=== PATIENT | female | born 1930 | race Two or more races ===

== ENCOUNTER 2018-02-06 15:29 | Observation (INO) | payer MEDICARE ==
[2018-02-06] MEDS ORDERED: SODIUM CHLORIDE 1,000 ML IV STA (16:14)
[2018-02-06] MEDS ORDERED: FAMOTIDINE 20 MG/50 ML IVPB 20 MG/50 ML MG IVPB ONE ×2 (16:15→17:02)
[2018-02-06 16:42] LABS: BASO % 0.3 % (0-2.0); EOS % 0.1 % (0-4.5); HEMATOCRIT 40.2 % (32.4-45.2); HEMOGLOBIN 13.8 GM/dL (10.7-15.3); MCH 34.1 pg (25.7-33.7); MCHC 34.3 g/dl (32.0-36.0); MEAN CELL VOLUME 99.4 fl (80-96); MEAN PLT VOLUME 8.1 fl (7.5-11.1); MONO % 8.8 % (3.8-10.2); NEUT % 71.8 % (42.8-82.8); PLATELET COUNT 185 K/MM3 (134-434); RBC 4.04 M/mm3 (3.60-5.2); RDW 13.7 % (11.6-15.6); WHITE BLOOD COUNT 5.6 K/mm3 (4.0-10.0)
--- NOTE | 2018-02-06 16:42 | PDOC ---
History of Present Illness - General Chief Complaint: Pain Stated Complaint: CHEST PAIN Time Seen by Provider: 02/06/18 16:00 History Source: Patient, Family Exam Limitations: Dementia - History of Present Illness Initial Comments: 02/06/18 16:35 Patient is an 87F with history of dementia, HTN, GERD here today complaining of chest pain and epigastric pain that started yesterday. The patient's daughter also states that she had shortness of breath. Denies history of blood clots. Patient is refusing to talk to phone sound recording technician, tells the daughter only if she has pain. The daughter reports that she has been increasingly confused lately and has had increased urinary frequency. Past History - Past Medical History Allergies/Adverse Reactions: Allergies Allergy/AdvReac Type Severity Reaction Status Date / Time No Known Allergies Allergy Verified 02/06/18 15:57 Home Medications: Ambulatory Orders Acetaminophen [Tylenol -] 650 mg PO Q4H PRN 02/06/18 Escitalopram Oxalate [Lexapro -] 10 mg PO HS 02/06/18 Haloperidol [Haldol -] 0.5 mg PO DAILY 02/06/18 COPD: No GI Disorders: Yes (GERD) HTN: Yes Psychiatric Problems: Yes (ALZHEIMERS) - Surgical History Abdominal Surgery: Yes - Immunization History Td Vaccination: Yes TDAP Vaccination: Yes Immunization Up to Date: Yes - Suicide/Smoking/Psychosocial Hx Smoking Status: No Smoking History: Never smoked Have you smoked in the past 12 months: No Number of Cigarettes Smoked Daily: 0 Hx Alcohol Use: No Drug/Substance Use Hx: No Substance Use Type: None Hx Substance Use Treatment: No Review of Systems - Review of Systems Able to Perform ROS?: No (2/2 dementia) *Physical Exam - Vital Signs Last Vital Signs Temp Pulse Resp BP Pulse Ox 98.0 F 60 18 165/91 99 02/06/18 15:40 02/06/18 15:40 02/06/18 15:40 02/06/18 15:40 02/06/18 15:40 - Physical Exam Comments: 02/06/18 16:42 GENERAL: Awake, alert, in no acute distress HEAD: No signs of trauma, normocephalic, atraumatic EYES: PERRLA, EOMI, sclera anicteric, conjunctiva clear ENT: Auricles normal inspection, hearing grossly normal, nares patent, oropharynx clear without exudates. Moist mucosa NECK: Normal ROM, supple, no lymphadenopathy, JVD, or masses LUNGS: No distress, speaks full sentences, clear to auscultation bilaterally HEART: Regular rate and rhythm, normal S1 and S2, no murmurs, rubs or gallops, peripheral pulses normal and equal bilaterally. ABDOMEN: Soft, nontender, normoactive bowel sounds. No guarding, no rebound. No masses EXTREMITIES: Normal inspection, Normal range of motion, no edema. No clubbing or cyanosis. NEUROLOGICAL: Cranial nerves II through XII grossly intact. Normal speech, normal gait, no focal sensorimotor deficits SKIN: Warm, Dry, normal turgor, no rashes or lesions noted. ED Treatment Course - LABORATORY CBC & Chemistry Diagram: 02/06/18 16:37 02/06/18 16:37 - RADIOLOGY Radiology Studies Ordered: Category Date Time Status HEAD CT WITHOUT CONTRAST [CT] Stat CT Scan 02/06/18 16:15 Ordered CHEST X-RAY PORTABLE* [RAD] Stat Radiology 02/06/18 16:14 Taken Medical Decision Making - Medical Decision Making 02/06/18 16:43 Patient is an 87F with history of dementia, GERD, HTN here today with chest pain , epigastric pain, AMS. Vitals normal and stable, +epigastric tenderness on exam. History limited by patient's mental status. DDx includes, but is not limited to: UTI, ACS, arrhythmia, GERD, subdural hematoma. EKG shows sinus bradycardia with rate of 59 and 1st degree AV block (AR 216). No st elevations/depressions. Normal QRS/QTc intervals. No significant t wave abnormalities. 02/06/18 20:[address] Head negative. CBC, CMP, troponin normal. UA 3+ LE, but no WBCs. Will cover in ED as possible UTI, but not conclusive. Will admit for chest pain in 87 year old. *DC/Admit/Observation/Transfer Diagnosis at time of Disposition: Chest pain, UTI (urinary tract infection) - Discharge Dispostion Condition at time of disposition: Stable Decision to Admit order: Yes - Referrals - Patient Instructions - Post Discharge Activity
[2018-02-06 16:55] LABS: INR 1.09 (0.83-1.09); PROTHROMBIN TIME (PATIENT) 12.3 SEC (9.7-13.0)
[2018-02-06 17:14] LABS: ALBUMIN 3.6 g/dl (3.4-5.0); ALK PHOS 61 U/L (45-117); ANION GAP 9 MMOL/L (8-16); BILIRUBIN,TOTAL 0.8 mg/dL (0.2-1); BLOOD UREA NITROGEN 16 mg/dL (7-18); CALCIUM 8.9 mg/dL (8.5-10.1); CHLORIDE 105 mmol/L (98-107); CO2 24 mmol/L (21-32); CREATININE 0.5 mg/dL (0.55-1.3); GLUCOSE,RANDOM 85 mg/dL (74-106); LIPASE 108 U/L (73-393); MAGNESIUM 2.1 mg/dL (1.8-2.4); SGOT/AST 43 U/L (15-37); SGPT/ALT 38 U/L (13-61); SODIUM 139 mmol/L (136-145); TOT PROT 7.3 g/dl (6.4-8.2)
--- NOTE | 2018-02-06 18:58 | PDOC ---
Attending Attestation - Resident Resident Name: Abiodun Carrasco - ED Attending Attestation I have performed the following: I have examined & evaluated the patient, The case was reviewed & discussed with the resident, I agree w/resident's findings & plan, Exceptions are as noted - HPI HPI: 02/06/18 18:54 87F with h/o dementia, HTN, GERD presenting with AMS and chest pain. Per daughter, pt has been complaining of pain in her chest radiating from her epigastric region associated with SOB. Pt unable to contribute much history herself due to dementia. Daughter reports that pt has been more confused than her baseline recently. Denies any new focal weakness, no slurred speech, no facial droop. She notes that pt has had increased urinary frequency. - Physicial Exam PE: 02/06/18 18:57 GENERAL: Awake, alert, in no acute distress. HEAD: No signs of trauma EYES: PERRLA, EOMI, sclera anicteric, conjunctiva clear ENT: Auricles normal inspection, hearing grossly normal, nares patent, oropharynx clear without exudates. Moist mucosa NECK: Nontender, no stepoffs, Normal ROM, supple, no lymphadenopathy, JVD, or masses LUNGS: Breath sounds equal, clear to auscultation bilaterally. No wheezes, and no crackles HEART: Regular rate and rhythm, normal S1 and S2, no murmurs, rubs or gallops ABDOMEN: Soft, nontender, normoactive bowel sounds. No guarding, no rebound. No masses EXTREMITIES: Normal range of motion, no edema. No clubbing or cyanosis. No cords, erythema, or tenderness NEUROLOGICAL: Cranial nerves II through XII intact. 5/5 strength and sensation in all extremities SKIN: Warm, Dry, normal turgor, no rashes or lesions noted. - Medical Decision Making 02/06/18 18:57 87 F with CP/SOB, as well as AMS. WIll evaluate for ACS with EKG and trops. AMS likely 2/2 infectious process, suspect UTI. No new neuro deficits. - Labs, trop, EKG - CXR, UA - CT head - Admit
[2018-02-06 20:07] LABS: URINE APPEARANCE CLEAR; URINE BILIRUBIN NEGATIVE (<2.0 mg/dL); URINE COLOR STRAW; URINE GLUCOSE (UA) NEGATIVE (NEGATIVE); URINE KETONE NEGATIVE (NEGATIVE); URINE NITRITE NEGATIVE (NEGATIVE); URINE PROTEIN NEGATIVE (NEGATIVE); URINE UROBILINOGEN NEGATIVE mg/dL (0.2-1.0)
[2018-02-06 20:09] LABS: URINE LEUK ESTERASE 3+ (NEGATIVE)
[2018-02-06 20:11] LABS: EPI CELLS RARE /HPF (FEW)
[2018-02-06] MEDS ORDERED: CEFTRIAXONE 1,000 MG in DEXTROSE 5%-WATER - 50 ML IVPB ONE (20:39)
[2018-02-06] MEDS ORDERED: ACETAMINOPHEN 325 MG TABLET (FP) PO ONE (21:12)
[2018-02-06] MEDS ORDERED: CEFTRIAXONE 1 GM/50 ML BAG ONE (21:13)
[2018-02-06] MEDS ORDERED: ACETAMINOPHEN 325 MG TABLET (FP) ONE (21:13)
[2018-02-06] MEDS ORDERED: ASPIRIN 325 MG TABLET PO ONE (21:23)
[2018-02-06] MEDS ORDERED: ACETAMINOPHEN 325 MG TABLET (FP) PO PRN (21:23)
--- NOTE | 2018-02-06 21:26 | HP ---
CHIEF COMPLAINT: chest pain, epigastric pain PCP: Nayla HISTORY OF PRESENT ILLNESS: This is an 87 year old female with a past medical history of HTN, dementia, ? GERD who presented to the ED with chest pain and epigastric pain since yesterday as per daughter. Upon exam pt only c/o headache. Denies chest or stomach pain. Daughter reports mother often complaints of abdominal pain. The patient only recently came to live with the daugher 4 days ago. Prior to that she was living with the son. Daughter reported to the ED staff that mother is having memory problems and change in mental status. Upon further clarification with the daughter via telephone this has been going on for months. The daughter also reports that her mother urinates frequently but she is unsure if this is new as she has only been living with her for 4 days. h/o obtained from daughter via telephone. ER course was notable for: (1) trop neg (2) u/a with 3+ leuk esterase but only 1 WBC (3) no ECG changes Recent Travel: none PAST MEDICAL HISTORY: HTN, dementia, ?GERD-daughter denies any diagnosis, but reports h/o abd pain PAST SURGICAL HISTORY: daughter denies Social History: Smoking: daughter denies Alcohol: daughter denies Drugs: daughter denies Family History: unk Allergies No Known Allergies Allergy (Verified 02/06/18 15:57) HOME MEDICATIONS: 3 Medication Instructions Recorded Acetaminophen [Tylenol -] 650 mg PO Q4H PRN 02/06/18 Escitalopram Oxalate [Lexapro -] 10 mg PO HS 02/06/18 Haloperidol [Haldol -] 0.5 mg PO DAILY 02/06/18 REVIEW OF SYSTEMS CONSTITUTIONAL: Absent: fever, chills, diaphoresis, generalized weakness, malaise, loss of appetite, weight change HEENT: Absent: rhinorrhea, nasal congestion, throat pain, throat swelling, difficulty swallowing, mouth swelling, ear pain, eye pain, visual changes CARDIOVASCULAR: Present: chest pain Absent: syncope, palpitations, irregular heart rate, lightheadedness, peripheral edema RESPIRATORY: Absent: cough, shortness of breath, dyspnea with exertion, orthopnea, wheezing, stridor, hemoptysis GASTROINTESTINAL: Present: abdominal pain Absent: abdominal distension, nausea, vomiting, diarrhea, constipation, melena, hematochezia GENITOURINARY: Absent: dysuria, frequency, urgency, hesitancy, hematuria, flank pain, genital pain MUSCULOSKELETAL: Absent: myalgia, arthralgia, joint swelling, back pain, neck pain SKIN: Absent: rash, itching, pallor HEMATOLOGIC/IMMUNOLOGIC: Absent: easy bleeding, easy bruising, lymphadenopathy, frequent infections ENDOCRINE: Absent: unexplained weight gain, unexplained weight loss, heat intolerance, cold intolerance NEUROLOGIC: Absent: headache, focal weakness or paresthesias, dizziness, unsteady gait, seizure, mental status changes, bladder or bowel incontinence PSYCHIATRIC: Absent: anxiety, depression, suicidal or homicidal ideation, hallucinations. PHYSICAL EXAMINATION Vital Signs - 24 hr 3 02/06/18 02/06/18 02/06/18 15:40 16:25 19:00 Temperature 98.0 F Pulse Rate 60 Pulse Rate [ 60 58 L Apical] Respiratory 18 20 20 Rate Blood Pressure 165/91 Blood Pressure 162/106 165/87 [Left Arm] O2 Sat by Pulse 99 96 97 Oximetry (%) GENERAL: Awake, alert, and oriented to person and hospital, in no acute distress. HEAD: Normal with no signs of trauma. EYES: Pupils equal, round and reactive to light, extraocular movements intact, sclera anicteric, conjunctiva clear. No lid lag. EARS, NOSE, THROAT: Ears normal, nares patent, oropharynx clear without exudates. Moist mucous membranes. NECK: Normal range of motion, supple without lymphadenopathy, JVD, or masses. LUNGS: Breath sounds equal, clear to auscultation bilaterally. No wheezes, and no crackles. No accessory muscle use. HEART: Regular rate and rhythm, normal S1 and S2 without murmur, rub or gallop. ABDOMEN: Soft, nontender, not distended, normoactive bowel sounds, no guarding, no rebound, no masses. No hepatomegaly or splenomegaly. MUSCULOSKELETAL: Normal range of motion at all joints. No bony deformities or tenderness. No CVA tenderness. UPPER EXTREMITIES: 2+ pulses, warm, well-perfused. No cyanosis. No clubbing. No peripheral edema. LOWER EXTREMITIES: 2+ pulses, warm, well-perfused. No calf tenderness. No peripheral edema. NEUROLOGICAL: Cranial nerves II-XII intact. Normal speech. Normal gait. PSYCHIATRIC: Cooperative. Good eye contact. Appropriate mood and affect. SKIN: Warm, dry, normal turgor, no rashes or lesions noted, normal capillary refill. Laboratory Results - last 24 hr 3 02/06/18 02/06/18 02/06/18 16:37 16:37 16:37 WBC 5.6 RBC 4.04 Hgb 13.8 Hct 40.2 MCV 99.4 H MCH 34.1 H MCHC 34.3 RDW 13.7 Plt Count 185 MPV 8.1 Absolute Neuts (auto) 4.0 Neutrophils % 71.8 Lymphocytes % 19.0 Monocytes % 8.8 Eosinophils % 0.1 Basophils % 0.3 Nucleated RBC % 0 PT with INR 12.30 INR 1.09 Sodium 139 Potassium 4.0 Chloride 105 Carbon Dioxide 24 Anion Gap 9 BUN 16 Creatinine 0.5 L Creat Clearance w eGFR > 60 Random Glucose 85 Calcium 8.9 Magnesium 2.1 Total Bilirubin 0.8 AST 43 H ALT 38 Alkaline Phosphatase 61 Creatine Kinase 64 Troponin I < 0.02 Total Protein 7.3 Albumin 3.6 Lipase 108 Urine Color Urine Appearance Urine pH Ur Specific [place] Urine Protein Urine Glucose (UA) Urine Ketones Urine Blood Urine Nitrite Urine Bilirubin Urine Urobilinogen Ur Leukocyte Esterase Urine WBC (Auto) Urine RBC (Auto) Ur Epithelial Cells 3 Urine Color Straw 02/06/18 19:50 Urine Appearance Clear 02/06/18 19:50 Urine pH 7.0 (5.0-8.0) 02/06/18 19:50 Ur Specific [place] 1.005 (1.001-1.035) 02/06/18 19:50 Urine Protein Negative (NEGATIVE) 02/06/18 19:50 Urine Glucose (UA) Negative (NEGATIVE) 02/06/18 19:50 Urine Ketones Negative (NEGATIVE) 02/06/18 19:50 Urine Blood Negative (NEGATIVE) 02/06/18 19:50 Urine Nitrite Negative (NEGATIVE) 02/06/18 19:50 Urine Bilirubin Negative (<2.0 mg/dL) 02/06/18 19:50 Ur Leukocyte Esterase 3+ (NEGATIVE) H 02/06/18 19:50 Urine WBC (Auto) 1 02/06/18 19:50 Urine RBC (Auto) None 02/06/18 19:50 Ur Epithelial Cells Rare /HPF (FEW) 02/06/18 19:50 ECG Sinus bradycardia with 1st degree AV block Vent Rate: 59, QTC 437, UT [address]/T wave changes Radiology Report CXR portable Impression: No evidence of acute infiltrate or pleural effusion. Stable enlargement of cardiac silhouette. Reported By: Jasbir Lindsey DO 02/06/[address] head THIS IS A PRELIMINARY REPORT FROM IMAGING PUBLIC INFORMATION COORDINATOR IMPRESSION: No acute territorial infarct, hemorrhage, or space-occupying mass. THIS DOCUMENT HAS BEEN ELECTRONICALLY SIGNED Jorge Blas MD 02/06/2018 20:20 EST ASSESSMENT/PLAN: 87yF with PMH HTN, dementia, ?GERD who presented to the ED with report of chest pain and epigastric pain as per daughter. Chest pain - trop neg x 1, trend x 2 more - admit to tele - cardiology consult - on no cardiac meds at home. ASA given x 1, hold betablocker due to HR 58 Abdominal pain - will treat for GERD - cont H2 thee, zantac 150 BID urinary frequency - unclear if symptom is new, WBC of 1 in urine in abscence of fever, elevated WBC will defer further antibiotics unless c/s with growth Dementia - supportive care DVT PPX - expected LOS <48h, defer heparin FEN - tolerating po fluids - BMP in am - low sodium diet as tolerated Dispo: pt currently requires further observation Visit type - Emergency Visit Emergency Visit: Yes ED Registration Date: 02/06/18 Care time: The patient presented to the Emergency Department on the above date and was hospitalized for further evaluation of their emergent condition. - New Patient This patient is new to me today: Yes Date on this admission: 02/06/18 - Critical Care Critical Care patient: No Hospitalist Screening - Colonoscopy Questionnaire Colonoscopy Questionnaire: Colonoscopy Questionnaire - Patient: 50 - 75 years old and never had a screening colonoscopy: No History of colon or rectal polyps, or CA: Unknown History of IBD, Crohn's disease or UC: Unknown History of abdominal radiation therapy as a child: Unknown - Relative: 1 with colon or rectal CA, or polyps at age 60 or younger: Unknown Colon or rectal CA diagnosed at age 45 or younger: Unknown Multiple relatives with colon or rectal CA: Unknown - Outcome: Screening Result: Negative Screen
[2018-02-06] MEDS ORDERED: ASPIRIN 325 MG ENTERIC COATED TABLET (FP) ONE (21:53)
[2018-02-07 06:59] LABS: BASO % 0.5 % (0-2.0); EOS % 0.1 % (0-4.5); HEMATOCRIT 39.8 % (32.4-45.2); HEMOGLOBIN 13.6 GM/dL (10.7-15.3); LYMPH % 28.7 % (8-40); MCHC 34.2 g/dl (32.0-36.0); MEAN CELL VOLUME 99.6 fl (80-96); MEAN PLT VOLUME 8.3 fl (7.5-11.1); MONO % 7.6 % (3.8-10.2); NEUT % 63.1 % (42.8-82.8); PLATELET COUNT 178 K/MM3 (134-434); RDW 13.7 % (11.6-15.6); WHITE BLOOD COUNT 4.2 K/mm3 (4.0-10.0)
[2018-02-07 07:45] LABS: ANION GAP 10 MMOL/L (8-16); BLOOD UREA NITROGEN 15 mg/dL (7-18); CALCIUM 8.5 mg/dL (8.5-10.1); CHLORIDE 102 mmol/L (98-107); CO2 24 mmol/L (21-32); CREATININE 0.7 mg/dL (0.55-1.3); GLUCOSE,RANDOM 88 mg/dL (74-106); MAGNESIUM 1.9 mg/dL (1.8-2.4); PHOSPHOROUS 3.2 mg/dL (2.5-4.9); POTASSIUM 3.3 mmol/L (3.5-5.1); SODIUM 136 mmol/L (136-145)
--- NOTE | 2018-02-07 08:59 | PN ---
Progress Note, Physician History of Present Illness: 87yF with PMH HTN, dementia, ?GERD who presented to the ED with report of chest pain and epigastric pain as per daughter. - Current Medication List Current Medications: Active Medications Acetaminophen (Tylenol -) 650 mg PO Q6H PRN PRN Reason: PAIN Ranitidine HCl (Zantac -) 150 mg PO BID ODELL - Objective Vital Signs: Vital Signs Temperature 98 F 02/07/18 06:36 Pulse Rate 73 02/07/18 06:36 Respiratory Rate 16 02/07/18 06:36 Blood Pressure 145/78 02/07/18 06:36 O2 Sat by Pulse Oximetry (%) 99 02/07/18 06:36 Cardiovascular: Yes: S1, S2 Respiratory: Yes: Regular, CTA Bilaterally Gastrointestinal: Yes: Normal Bowel Sounds, Soft, Tenderness, Epigastrium Labs: CBC, BMP 02/07/18 06:20 02/07/18 06:20 INR, PTT INR 1.09 (0.83-1.09) 02/06/18 16:37 Problem List - Problems (1) Chest pain Assessment/Plan: - trop neg x 2 - admit to tele - cardiology consult - on no cardiac meds at home. ASA Code(s): R07.9 - CHEST PAIN, UNSPECIFIED (2) UTI (urinary tract infection) Assessment/Plan: -Culture -Id consult Code(s): N39.0 - URINARY TRACT INFECTION, SITE NOT SPECIFIED (3) Hypokalemia Assessment/Plan: -Replace Code(s): E87.6 - HYPOKALEMIA (4) Indigestion Assessment/Plan: -PPI -GI Code(s): K30 - FUNCTIONAL DYSPEPSIA (5) Abdominal pain Assessment/Plan: -GI Consult Code(s): R10.9 - UNSPECIFIED ABDOMINAL PAIN
[2018-02-07] MEDS ORDERED: PANTOPRAZOLE SODIUM 40 MG/100 ML BAG IVPB ONE (10:52)
[2018-02-07] MEDS: RANITIDINE HCL 150 MG TABLET (FP) PO SCH ×3 (10:59→23:17)
[2018-02-07] MEDS: PANTOPRAZOLE SODIUM 40 MG VIAL IVPUSH SCH ×3 (10:59→23:18)
--- NOTE | 2018-02-07 11:51 | CON.GI ---
Consult Consult Specialty:: GI Reason for Consultation:: Chest pain - History of Present Illness History of Present Illness: Chart reviewed. Events noted. As per Initial intake on 02/06/18: This is an 87 year old female with a past medical history of HTN, dementia, ? GERD who presented to the ED with chest pain and epigastric pain since yesterday as per daughter. Upon exam pt only c/o headache. Denies chest or stomach pain. Daughter reports mother often complaints of abdominal pain. The patient only recently came to live with the daughter 4 days ago. Prior to that she was living with the son. Daughter reported to the ED staff that mother is having memory problems and change in mental status. Upon further clarification with the daughter via telephone this has been going on for months. The daughter also reports that her mother urinates frequently but she is unsure if this is new as she has only been living with her for 4 days. h/o obtained from daughter via telephone. ER course was notable for: (1) trop neg (2) u/a with 3+ leuk esterase but only 1 WBC (3) no ECG changes No documented history of GERD, PUD, GS, pancreatitis. Not on chronic NSAIDs. No hx of ETOH abuse. At the time of this encounter, the patient was sitting in the chair eating crackers and oatmeal cookies with tea. Appeared comfortable and pain-free. [id number] RAD/CHEST X-RAY PORTABLE* Indication: Chest pain. Technique: AP portable view of the chest. Comparison: 10/25/2012 chest x-ray. Findings: There is no evidence of acute infiltrate, pulmonary vascular congestion or pleural effusion. Stable enlargement of the cardiac silhouette. Thoracic aorta is uncoiled with mild calcific atherosclerosis. No abnormal deviation of the trachea. Impression: No evidence of acute infiltrate or pleural effusion. Stable enlargement of cardiac silhouette. Reported By: Jasbir Lindsey DO 02/06/18 1725 SINUS BRADYCARDIA WITH 1ST DEGREE A-V BLOCK CANNOT RULE OUT ANTERIOR INFARCT (CITED ON OR BEFORE 20-JUN-2008) ABNORMAL ECG WHEN COMPARED WITH ECG OF 19-MAR-2014 20:21, VENT. RATE HAS DECREASED BY 35 BPM CRITERIA FOR INFERIOR INFARCT ARE NO LONGER PRESENT Confirmed by TRISH DOE MD ([id number]) on 02/07/2018 12:11:08 PM Referred By: Confirmed By:TRISH DOE MD Abnormal Lab Results 02/06/18 02/06/18 02/06/18 16:37 16:37 19:50 MCV 99.4 H MCH 34.1 H Potassium Creatinine 0.5 L AST 43 H Ur Leukocyte Esterase 3+ H 02/07/18 02/07/18 06:20 06:20 MCV 99.6 H MCH 34.0 H Potassium 3.3 L Creatinine AST Ur Leukocyte Esterase CBCD WBC 4.2 K/mm3 (4.0-10.0) 02/07/18 06:20 RBC 4.00 M/mm3 (3.60-5.2) 02/07/18 06:20 Hgb 13.6 GM/dL (10.7-15.3) 02/07/18 06:20 Hct 39.8 % (32.4-45.2) 02/07/18 06:20 MCV 99.6 fl (80-96) H 02/07/18 06:20 MCHC 34.2 g/dl (32.0-36.0) 02/07/18 06:20 RDW 13.7 % (11.6-15.6) 02/07/18 06:20 Plt Count 178 K/MM3 (134-434) 02/07/18 06:20 MPV 8.3 fl (7.5-11.1) 02/07/18 06:20 CMP Sodium 136 mmol/L (136-145) 02/07/18 06:20 Potassium 3.3 mmol/L (3.5-5.1) L 02/07/18 06:20 Chloride 102 mmol/L (98-107) 02/07/18 06:20 Carbon Dioxide 24 mmol/L (21-32) 02/07/18 06:20 Anion Gap 10 MMOL/L (8-16) 02/07/18 06:20 BUN 15 mg/dL (7-18) 02/07/18 06:20 Creatinine 0.7 mg/dL (0.55-1.3) 02/07/18 06:20 Creat Clearance w eGFR > 60 (>60) 02/07/18 06:20 Calcium 8.5 mg/dL (8.5-10.1) 02/07/18 06:20 Total Bilirubin 0.8 mg/dL (0.2-1) 02/06/18 16:37 AST 43 U/L (15-37) H 02/06/18 16:37 ALT 38 U/L (13-61) 02/06/18 16:37 Alkaline Phosphatase 61 U/L (45-117) 02/06/18 16:37 Total Protein 7.3 g/dl (6.4-8.2) 02/06/18 16:37 Albumin 3.6 g/dl (3.4-5.0) 02/06/18 16:37 - History Source History Provided By: Medical Record, Caregiver - Alcohol/Substance Use Hx Alcohol Use: No - Smoking History Smoking history: Never smoked Have you smoked in the past 12 months: No Aproximately how many cigarettes per day: 0 Home Medications - Allergies Allergies/Adverse Reactions: Allergies Allergy/AdvReac Type Severity Reaction Status Date / Time No Known Allergies Allergy Verified 02/06/18 15:57 - Home Medications Home Medications: Ambulatory Orders Acetaminophen [Tylenol -] 650 mg PO Q4H PRN 02/06/18 Escitalopram Oxalate [Lexapro -] 10 mg PO HS 02/06/18 Haloperidol [Haldol -] 0.5 mg PO DAILY 02/06/18 Family Disease History - Family Disease History Family History: Unremarkable (non-contributory) Review of Systems Findings/Remarks: as per HPI, ED, H&P Physical Exam-GI Vital Signs: Vital Signs Temperature 98 F 02/07/18 06:36 Pulse Rate 73 02/07/18 06:36 Respiratory Rate 16 02/07/18 06:36 Blood Pressure 145/78 02/07/18 06:36 O2 Sat by Pulse Oximetry (%) 99 02/07/18 06:36 Constitutional: Yes: No Distress, Calm, Thin Eyes: Yes: Conjunctiva Clear HENT: Yes: Atraumatic Neck: Yes: Supple Gastrointestinal Inspection: No: Ascites, Distention ...Palpate: Yes: Soft. No: Firm/Rigid, Guarding, Hepatomegaly, Mass, Tenderness , Rebound Neurological: Yes: Alert. No: [place] Labs: CBC, BMP 02/07/18 06:20 02/07/18 06:20 INR, PTT INR 1.09 (0.83-1.09) 02/06/18 16:37 Laboratory Last Values WBC 4.2 K/mm3 (4.0-10.0) 02/07/18 06:20 RBC 4.00 M/mm3 (3.60-5.2) 02/07/18 06:20 Hgb 13.6 GM/dL (10.7-15.3) 02/07/18 06:20 Hct 39.8 % (32.4-45.2) 02/07/18 06:20 MCV 99.6 fl (80-96) H 02/07/18 06:20 MCH 34.0 pg (25.7-33.7) H 02/07/18 06:20 MCHC 34.2 g/dl (32.0-36.0) 02/07/18 06:20 RDW 13.7 % (11.6-15.6) 02/07/18 06:20 Plt Count 178 K/MM3 (134-434) 02/07/18 06:20 MPV 8.3 fl (7.5-11.1) 02/07/18 06:20 Absolute Neuts (auto) 2.6 K/mm3 (1.5-8.0) 02/07/18 06:20 Neutrophils % 63.1 % (42.8-82.8) 02/07/18 06:20 Lymphocytes % 28.7 % (8-40) D 02/07/18 06:20 Monocytes % 7.6 % (3.8-10.2) 02/07/18 06:20 Eosinophils % 0.1 % (0-4.5) 02/07/18 06:20 Basophils % 0.5 % (0-2.0) 02/07/18 06:20 Nucleated RBC % 0 % (0-0) 02/07/18 06:20 PT with INR 12.30 SEC (9.7-13.0) 02/06/18 16:37 INR 1.09 (0.83-1.09) 02/06/18 16:37 Sodium 136 mmol/L (136-145) 02/07/18 06:20 Potassium 3.3 mmol/L (3.5-5.1) L 02/07/18 06:20 Chloride 102 mmol/L (98-107) 02/07/18 06:20 Carbon Dioxide 24 mmol/L (21-32) 02/07/18 06:20 Anion Gap 10 MMOL/L (8-16) 02/07/18 06:20 BUN 15 mg/dL (7-18) 02/07/18 06:20 Creatinine 0.7 mg/dL (0.55-1.3) 02/07/18 06:20 Creat Clearance w eGFR > 60 (>60) 02/07/18 06:20 Random Glucose 88 mg/dL (74-106) 02/07/18 06:20 Calcium 8.5 mg/dL (8.5-10.1) 02/07/18 06:20 Phosphorus 3.2 mg/dL (2.5-4.9) 02/07/18 06:20 Magnesium 1.9 mg/dL (1.8-2.4) 02/07/18 06:20 Total Bilirubin 0.8 mg/dL (0.2-1) 02/06/18 16:37 AST 43 U/L (15-37) H 02/06/18 16:37 ALT 38 U/L (13-61) 02/06/18 16:37 Alkaline Phosphatase 61 U/L (45-117) 02/06/18 16:37 Creatine Kinase 84 IU/L (26-192) 02/07/18 06:20 Troponin I < 0.02 ng/ml (0.00-0.05) 02/07/18 06:20 Total Protein 7.3 g/dl (6.4-8.2) 02/06/18 16:37 Albumin 3.6 g/dl (3.4-5.0) 02/06/18 16:37 Lipase 108 U/L (73-393) 02/06/18 16:37 Urine Color Straw 02/06/18 19:50 Urine Appearance Clear 02/06/18 19:50 Urine pH 7.0 (5.0-8.0) 02/06/18 19:50 Ur Specific [place] 1.005 (1.001-1.035) 02/06/18 19:50 Urine Protein Negative (NEGATIVE) 02/06/18 19:50 Urine Glucose (UA) Negative (NEGATIVE) 02/06/18 19:50 Urine Ketones Negative (NEGATIVE) 02/06/18 19:50 Urine Blood Negative (NEGATIVE) 02/06/18 19:50 Urine Nitrite Negative (NEGATIVE) 02/06/18 19:50 Urine Bilirubin Negative (<2.0 mg/dL) 02/06/18 19:50 Urine Urobilinogen Negative mg/dL (0.2-1.0) 02/06/18 19:50 Ur Leukocyte Esterase 3+ (NEGATIVE) H 02/06/18 19:50 Urine WBC (Auto) 1 /hpf (3-5) 02/06/18 19:50 Urine RBC (Auto) None /hpf (0-3) 02/06/18 19:50 Ur Epithelial Cells Rare /HPF (FEW) 02/06/18 19:50 Imaging - Results Chest X-ray: Report Reviewed EKG: Report Reviewed Problem List - Problems (1) Chest pain Code(s): R07.9 - CHEST PAIN, UNSPECIFIED (2) Abdominal pain Code(s): R10.9 - UNSPECIFIED ABDOMINAL PAIN Assessment/Plan AN 87F with non-revealing blood work. The patient doesn't appear to have issues with eating and swallowing. Doesn't appear to be in pain, or discomfort. Could not elicit abdominal tenderness on exam. Do not suspect acute pancreaticobiliary etiology. Cannot exclude a possibility of recurrent dyspepsia related to GERD, gastritis, ect., however, do not think the patient will benefit from endoscopic work up at this time. Recommend: continue diet as tolerated, small dose PPI daily and observe.
--- NOTE | 2018-02-07 12:11 | EKG ---
Test Reason : Blood Pressure : / mmHG Vent. Rate : 059 BPM Atrial Rate : 059 BPM P-R Int : 216 ms QRS Dur : 064 ms QT Int : 442 ms P-R-T Axes : 023 -01 026 degrees QTc Int : 437 ms SINUS BRADYCARDIA WITH 1ST DEGREE A-V BLOCK CANNOT RULE OUT ANTERIOR INFARCT (CITED ON OR BEFORE 20-JUN-2008) ABNORMAL ECG WHEN COMPARED WITH ECG OF 19-MAR-2014 20:21, VENT. RATE HAS DECREASED BY 35 BPM CRITERIA FOR INFERIOR INFARCT ARE NO LONGER PRESENT Confirmed by TRISH DOE MD ([id number]) on 02/07/2018 12:11:08 PM Referred By: Confirmed By:TRISH DOE MD
[2018-02-07 14:46] VITALS: TEMP 98.6; BMI 22.4
--- NOTE | 2018-02-07 14:52 | CON.CARD ---
Consult Consult Specialty:: Cardiology Referred by:: Shanae Newell Reason for Consultation:: Chest pain - History of Present Illness Chief Complaint: Abdominal pain History of Present Illness: 87 year old female with a pmhx of htn, dementia, and gerd who presents with abdominal pain. Patient has been complaining of abdominal pain that radiates up with food. Says she cannot eat due to this. No pnd, orthopnea, or edema. No sob. No chest pain. No palpitations. Patient is tearful at interview and is very poor historian. Troponins neg ECG: sinus with no acute ischemic ecg changes noted. 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 ...: No - Alcohol/Substance Use Hx Alcohol Use: No - Smoking History Smoking history: Never smoked Have you smoked in the past 12 months: No Aproximately how many cigarettes per day: 0 Home Medications - Allergies Allergies/Adverse Reactions: Allergies Allergy/AdvReac Type Severity Reaction Status Date / Time No Known Allergies Allergy Verified 02/06/18 15:57 - Home Medications Home Medications: Ambulatory Orders Acetaminophen [Tylenol -] 650 mg PO Q4H PRN 02/06/18 Escitalopram Oxalate [Lexapro -] 10 mg PO HS 02/06/18 Haloperidol [Haldol -] 0.5 mg PO DAILY 02/06/18 Vital Signs: Vital Signs Temperature 98.6 F 02/07/18 14:37 Pulse Rate 72 02/07/18 14:37 Respiratory Rate 20 02/07/18 14:37 Blood Pressure 133/92 02/07/18 14:37 O2 Sat by Pulse Oximetry (%) 97 02/07/18 14:37 Constitutional: Yes: No Distress Neck: Yes: Supple Respiratory: Yes: CTA Bilaterally Gastrointestinal: Yes: Soft Cardiovascular: Yes: Regular Rate and Rhythm JVD: No Carotid Bruit: No PMI: Non-Displaced Heart Sounds: Yes: S1, S2 Murmur: No: Systolic Murmur Edema: No - Other Data Labs, Other Data: CBC, BMP 02/07/18 06:20 02/07/18 06:20 INR, PTT INR 1.09 (0.83-1.09) 02/06/18 16:37 Troponin, BNP 02/06/18 02/07/18 16:37 06:20 Troponin I < 0.02 < 0.02 Troponin, BNP 02/06/18 02/07/18 16:37 06:20 Troponin I < 0.02 < 0.02 Imaging - Results Chest X-ray: Report Reviewed EKG: Image Reviewed Problem List - Problems (1) Chest pain Code(s): R07.9 - CHEST PAIN, UNSPECIFIED Assessment/Plan 87 year old female with a pmhx of htn, dementia, and gerd who presents with abdominal pain. Patient has been complaining of abdominal pain that radiates up with food. Says she cannot eat due to this. No pnd, orthopnea, or edema. No sob. No chest pain. No palpitations. Patient is tearful at interview and is very poor historian. Troponins neg ECG: sinus with no acute ischemic ecg changes noted. 1) Chest pain -does not complain of any chest pain to me. Complains of abdominal pain with food. Troponins negative EKG with no acute ischemic changes. Poor historian with dementia. GI consult pending. No further cardiac testing at this time.
--- NOTE | 2018-02-07 15:39 | CON.ID ---
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 ...: No - Alcohol/Substance Use Hx Alcohol Use: No - Smoking History Smoking history: Never smoked Have you smoked in the past 12 months: No Aproximately how many cigarettes per day: 0 - Social History Usual Living Arrangement: With Child Place of : Other ([facility]) Home Medications - Allergies Allergies/Adverse Reactions: Allergies Allergy/AdvReac Type Severity Reaction Status Date / Time No Known Allergies Allergy Verified 02/06/18 15:57 - Home Medications Home Medications: Ambulatory Orders Acetaminophen [Tylenol -] 650 mg PO Q4H PRN 02/06/18 Escitalopram Oxalate [Lexapro -] 10 mg PO HS 02/06/18 Haloperidol [Haldol -] 0.5 mg PO DAILY 02/06/18 Family Disease History - Family Disease History Family History: Unable to Obtain Review of Systems - Review of Systems Constitutional: denies: Chills, Fever Physical Exam Vital Signs: Vital Signs Temperature 98.6 F 02/07/18 14:37 Pulse Rate 72 02/07/18 14:37 Respiratory Rate 20 02/07/18 14:37 Blood Pressure 133/92 02/07/18 14:37 O2 Sat by Pulse Oximetry (%) 97 02/07/18 14:37 Constitutional: Yes: Well Nourished, No Distress, Calm Eyes: Yes: WNL HENT: Yes: WNL, Atraumatic, Normocephalic Neck: Yes: Supple Cardiovascular: Yes: Regular Rate and Rhythm Respiratory: Yes: Regular, CTA Bilaterally Gastrointestinal: Yes: Normal Bowel Sounds Renal/: Yes: WNL. No: Bladder Distention, CVA Tenderness - Left, CVA Tenderness - Right Edema: No Psychiatric: Yes: Alert Labs: CBC, BMP 02/07/18 06:20 02/07/18 06:20 Imaging - Results Chest X-ray: Report Reviewed, Image Reviewed Problem List - Problems (1) Abdominal pain Code(s): R10.9 - UNSPECIFIED ABDOMINAL PAIN (2) UTI (urinary tract infection) Code(s): N39.0 - URINARY TRACT INFECTION, SITE NOT SPECIFIED Assessment/Plan abdominal pain appears resolved, she is eating without complaints no vomiting noted doubt UTI UA is unremarkable she is afebrile no suprapubic or cvat would not treat
[2018-02-07] MEDS: ESCITALOPRAM OXALATE 10 MG TABLET (FP) PO SCH ×2 (22:33→23:17)
--- NOTE | 2018-02-08 08:36 | PN ---
Progress Note, Physician - Current Medication List Current Medications: Active Medications Acetaminophen (Tylenol -) 650 mg PO Q6H PRN PRN Reason: PAIN Escitalopram Oxalate (Lexapro -) 10 mg PO HS [facility] Last Admin: 02/07/18 22:33 Dose: Not Given Haloperidol (Haldol -) 0.5 mg PO DAILY [facility] Pantoprazole Sodium (Protonix Iv) 40 mg IVPUSH BID [facility] Last Admin: 02/07/18 22:32 Dose: Not Given Ranitidine HCl (Zantac -) 150 mg PO BID [facility] Last Admin: 02/07/18 22:33 Dose: Not Given - Objective Vital Signs: Vital Signs Temperature 98.6 F 02/07/18 21:00 Pulse Rate 71 02/07/18 21:00 Respiratory Rate 20 02/07/18 21:00 Blood Pressure 146/94 02/07/18 21:00 O2 Sat by Pulse Oximetry (%) 97 02/07/18 21:00 Labs: CBC, BMP 02/07/18 06:20 02/07/18 06:20 INR, PTT INR 1.09 (0.83-1.09) 02/06/18 16:37
--- NOTE | 2018-02-08 08:59 | DS ---
Physical Examination Vital Signs: Vital Signs Temperature 98.6 F 02/07/18 21:00 Pulse Rate 71 02/07/18 21:00 Respiratory Rate 20 02/07/18 21:00 Blood Pressure 146/94 02/07/18 21:00 O2 Sat by Pulse Oximetry (%) 97 02/07/18 21:00 Constitutional: Yes: No Distress Eyes: Yes: WNL HENT: Yes: WNL Neck: Yes: WNL Cardiovascular: Yes: WNL Respiratory: Yes: WNL Gastrointestinal: Yes: WNL Renal/: Yes: WNL Musculoskeletal: Yes: WNL Extremities: Yes: WNL Edema: No Peripheral Pulses WNL: Yes Integumentary: Yes: WNL Wound/Incision: Yes: Clean/Dry Neurological: Yes: Pre-Existing Deficit ...Motor Strength: LLE, RLE Psychiatric: Yes: Other Labs: CBC, BMP 02/07/18 06:20 02/07/18 06:20 Discharge Summary Reason For Visit: CHEST PAIN Current Active Problems Chest pain (Acute) UTI (urinary tract infection) (Acute) Procedures: Principal: head ct/labs/cx Hospital Course: admitted with chest pain/abd pain workup negative, leuk esterase positive however will not treat as per ID Condition: Stable - Instructions Diet, Activity, Other Instructions: dc home with vns f/u urine cultures with PMD as outpatient Referrals: Albert Winslow MD [Primary Care Provider] - Disposition: [facility]/HOME HEALTH CARE - Home Medications Comprehensive Discharge Medication List: Ambulatory Orders Acetaminophen [Tylenol -] 650 mg PO Q4H PRN 02/06/18 Escitalopram Oxalate [Lexapro -] 10 mg PO HS 02/06/18 Haloperidol [Haldol -] 0.5 mg PO DAILY 02/06/18
[2018-02-08 09:02] VITALS: BP 132/94; PULSE 76
[2018-02-08] MEDS ORDERED: HALOPERIDOL 0.5 MG TABLET PO SCH (10:00)
[2018-02-08] MEDS ORDERED: PT OWN MED DRAWER 7, Y5N ONE (10:53)
[2018-02-08 10:57] LABS: ANION GAP 11 MMOL/L (8-16); BLOOD UREA NITROGEN 19 mg/dL (7-18); CALCIUM 9.1 mg/dL (8.5-10.1); CHLORIDE 103 mmol/L (98-107); CO2 27 mmol/L (21-32); CREATININE 0.7 mg/dL (0.55-1.3); GLUCOSE,RANDOM 90 mg/dL (74-106); POTASSIUM 3.9 mmol/L (3.5-5.1); SODIUM 141 mmol/L (136-145)
[2018-02-08] MEDS: PANTOPRAZOLE SODIUM 40 MG VIAL IVPUSH SCH (11:07)
[2018-02-08] MEDS: RANITIDINE HCL 150 MG TABLET (FP) PO SCH (11:07)
== END 2018-02-08 13:21 | disposition home health service (06) ==
LOC: JER 15:29 → JERBED 20:56 → J6S 02-07 14:18
PROVIDERS: ADMIT Internal Medicine; ATTEND Family Medicine
PROC: 3E03329 Introduction of Other Anti-infective into Peripheral Vein, Percutaneous Approach (ICD-10-PCS; principal; 2018-02-06)
PROC: 3E0337Z Introduction of Electrolytic and Water Balance Substance into Peripheral Vein, Percutaneous Approach (ICD-10-PCS; 2018-02-06)
PROC: 3E033GC Introduction of Other Therapeutic Substance into Peripheral Vein, Percutaneous Approach (ICD-10-PCS; 2018-02-06)
DX: R07.9 Chest pain, unspecified (principal); N39.0 Urinary tract infection, site not specified; E87.6 Hypokalemia; I10 Essential (primary) hypertension; G30.9 Alzheimer's disease, unspecified; F02.80 Dementia in other diseases classified elsewhere, unspecified severity, without behavioral disturbance, psychotic disturbance, mood disturbance, and anxiety; K21.9 Gastro-esophageal reflux disease without esophagitis; K30 Functional dyspepsia; R10.9 Unspecified abdominal pain
CPT/HCPCS: 36415; 70450-TC; 71045-TC-FY; 80048; 80053; 81003; 81015; 82550; 83690; 83735; 84100; 84484; 85025; 85610; 87086; 87186; 93005; 93010; 96361; 96365; 96375; 99285-25; G0378; J7030

== ENCOUNTER 2019-03-28 00:13 | Emergency (ER) | payer MEDICARE, OTHER ==
[2019-03-28 00:36] VITALS: TEMP 98; BMI 23.5
--- NOTE | 2019-03-28 01:01 | PDOC ---
Documentation entered by Fabian Clay SCRIBE, acting as scribe for Nannette Rascon MD. Nannette Rascon MD: This documentation has been prepared by the Obed srivastava Nirvannie, SCRIBE, under my direction and personally reviewed by me in its entirety. I confirm that the documentation accurately reflects all work, treatment, procedures, and medical decision making performed by me. History of Present Illness - General Chief Complaint: Injury Stated Complaint: FALL Time Seen by Provider: 03/28/19 00:22 History Source: Patient, [facility] Records - History of Present Illness Initial Comments: 03/28/19 00:46 The patient is a 89 year old female, with a significant past medical history of schizophrenia, dementia, HTN, GERD, who presents to the emergency department right black eye. As per CT, she sustained her bruise earlier this today. History is limited secondary to patients dementia thus, was obtained via CT. She denies any chest pain or shortness of breath. Allergies: NKDA Past History - Past Medical History Allergies/Adverse Reactions: Allergies Allergy/AdvReac Type Severity Reaction Status Date / Time No Known Allergies Allergy Verified 02/14/18 14:26 Home Medications: Ambulatory Orders Acetaminophen [Tylenol .Regular Strength -] 650 mg PO Q4H PRN 02/06/18 Escitalopram Oxalate [Lexapro -] 10 mg PO HS 02/06/18 Melatonin/Pyridoxine HCl (B6) [Melatonin 1 mg Tablet] 1 each PO HS PRN #7 tablet MDD 1 02/08/18 Acetaminophen [Tylenol .Regular Strength -] 650 mg PO Q4H PRN tablet 02/18/18 Divalproex Sprinkle [Depakote Sprinkle -] 125 mg PO DAILY cap.sprink 02/18/18 Donepezil HCl [Aricept -] 5 mg PO HS tablet 02/18/18 COPD: No Dementia: Yes GI Disorders: Yes (GERD) HTN: Yes Psychiatric Problems: Yes (DEPRESSION, SCHIZOPHRENIA) - Surgical History Abdominal Surgery: Yes - Immunization History Td Vaccination: Yes TDAP Vaccination: Yes Immunization Up to Date: Yes - Psycho Social/Smoking Cessation Hx Smoking Status: No Smoking History: Never smoked Have you smoked in the past 12 months: No Number of Cigarettes Smoked Daily: 0 Information on smoking cessation initiated: No Hx Alcohol Use: No Drug/Substance Use Hx: No Substance Use Type: None Hx Substance Use Treatment: No Review of Systems - Review of Systems Able to Perform ROS?: No Comments:: 03/28/19 00:46 Unable to perform ROS secondary to patient's clinical condition. *Physical Exam - Vital Signs Last Vital Signs Temp Pulse Resp BP Pulse Ox 98 F 64 20 158/92 98 03/28/19 00:34 03/28/19 00:34 03/28/19 00:34 03/28/19 00:34 03/28/19 00:34 - Physical Exam Comments: 03/28/19 00:47 GENERAL: Well-appearing, well-nourished. No apparent distress. HEENT: +Right periorbital ecchymosis. PERRL, EOM intact. No entrapment. No scalp laceration. CARDIOVASCULAR: Normal S1, S2. Regular rate and rhythm. PULMONARY: Clear to auscultation bilaterally. ABDOMEN: Soft, non-distended, non-tender. BACK: No midline tenderness. EXTREMITIES: Normal ROM in all four extremities. No gross deformities. SKIN: Warm, dry. No rash NEUROLOGICAL: Following simple commands. No focal neurological deficits. ED Treatment Course - LABORATORY CBC & Chemistry Diagram: 03/28/19 01:10 03/28/19 01:10 ED Progress Note - Progress Note Progress Note: 03/28/19 02:06 Signed case out to Dr Robison labs,imaging studies pending Discharge - Discharge Information Problems reviewed: Yes Clinical Impression/Diagnosis: Fall Qualifiers: Encounter type: initial encounter Qualified Code(s): W19.XXXA - Unspecified fall, initial encounter Closed head injury Qualifiers: Encounter type: initial encounter Qualified Code(s): S09.90XA - Unspecified injury of head, initial encounter Condition: Stable Disposition: HOME - Follow up/Referral Referrals: Tiffanie Owens MD [Primary Care Provider] - - Patient Discharge Instructions Patient Printed Discharge Instructions: DI for Closed Head Injury Additional Instructions: You were seen in the ER today after a fall. The results of your labs and imaging today were normal. Please follow-up with your primary care doctor within 1-2 days to discuss your visit and make sure your symptoms have improved. Please return to the ER if you have any worsening pain, development of fevers or chills, loss of consciousness, inability to tolerate food or fluids , or any other concerns. - Post Discharge Activity
[2019-03-28 01:50] LABS: BASO % 0.4 % (0-2.0); EOS % 1.7 % (0-4.5); HEMATOCRIT 37.6 % (32.4-45.2); HEMOGLOBIN 12.4 GM/dL (10.7-15.3); MCH 33.3 pg (25.7-33.7); MCHC 33.1 g/dl (32.0-36.0); MEAN CELL VOLUME 100.7 fl (80-96); MEAN PLT VOLUME 8.7 fl (7.5-11.1); MONO % 12.9 % (3.8-10.2); PLATELET COUNT 195 K/MM3 (134-434); RBC 3.73 M/mm3 (3.60-5.2); RDW 14.8 % (11.6-15.6); WHITE BLOOD COUNT 4.1 K/mm3 (4.0-10.0)
--- NOTE | 2019-03-28 02:03 | PDOC ---
*Physical Exam - Vital Signs Last Vital Signs Temp Pulse Resp BP Pulse Ox 98 F 64 20 158/92 98 03/28/19 00:34 03/28/19 00:34 03/28/19 00:34 03/28/19 00:34 03/28/19 00:34 ED Treatment Course - LABORATORY CBC & Chemistry Diagram: 03/28/19 01:10 03/28/19 01:10 - ADDITIONAL ORDERS Additional order review: 03/28/19 01:10 RBC 3.73 MCV 100.7 H MCHC 33.1 RDW 14.8 MPV 8.7 Neutrophils % 45.0 Lymphocytes % 40.0 Monocytes % 12.9 H Eosinophils % 1.7 Basophils % 0.4 Medical Decision Making - Medical Decision Making Pt was signed out to me by Dr. Rascon, who explained the presentation, ED course , any pending results, and needed interventions. Pending results include labs, EKG, non-contrast CT head. Pt is currently stable and is lying comfortably. 03/28/19 02:03 H/H stable Trop <.02, no electrolyte abnormalities CT head, facial bones, C-spine negative for bleed or acute fractures. 03/28/19 02:52 ECG with no changes from prior. Pt endorsed to [facility] and provided strict return precautions. Arranging transport via EMS. 03/28/19 03:01 Discharge - Discharge Information Problems reviewed: Yes Clinical Impression/Diagnosis: Fall Qualifiers: Encounter type: initial encounter Qualified Code(s): W19.XXXA - Unspecified fall, initial encounter Closed head injury Qualifiers: Encounter type: initial encounter Qualified Code(s): S09.90XA - Unspecified injury of head, initial encounter Condition: Stable Disposition: [facility] FACILITY - Admission No - Follow up/Referral Referrals: Tiffanie Owens MD [Primary Care Provider] - - Patient Discharge Instructions Patient Printed Discharge Instructions: DI for Closed Head Injury Additional Instructions: You were seen in the ER today after a fall. The results of your labs and imaging today were normal. Please follow-up with your primary care doctor within 1-2 days to discuss your visit and make sure your symptoms have improved. Please return to the ER if you have any worsening pain, development of fevers or chills, loss of consciousness, inability to tolerate food or fluids , or any other concerns. - Post Discharge Activity
[2019-03-28 02:13] LABS: ALBUMIN 3.4 g/dl (3.4-5.0); BILIRUBIN,TOTAL 0.4 mg/dL (0.2-1); BLOOD UREA NITROGEN 27.9 mg/dL (7-18); CALCIUM 8.7 mg/dL (8.5-10.1); CREATININE 0.7 mg/dL (0.55-1.3); POTASSIUM 3.9 mmol/L (3.5-5.1); TOT PROT 6.8 g/dl (6.4-8.2)
[2019-03-28 03:16] VITALS: BP 151/82
[2019-03-28 03:17] VITALS: PULSE 66
--- NOTE | 2019-03-28 09:48 | EKG ---
Test Reason : Blood Pressure : / mmHG Vent. Rate : 062 BPM Atrial Rate : 062 BPM P-R Int : 190 ms QRS Dur : 068 ms QT Int : 428 ms P-R-T Axes : -02 -19 002 degrees QTc Int : 434 ms NORMAL SINUS RHYTHM INFERIOR INFARCT , AGE UNDETERMINED ABNORMAL ECG WHEN COMPARED WITH ECG OF 14-FEB-2018 17:22, INFERIOR INFARCT IS NOW PRESENT Confirmed by MD GIRISH, AV ([id number]) on 03/28/2019 9:48:45 AM Referred By: Confirmed By:AV STOUT MD
== END 2019-03-28 04:49 | disposition home or self-care (01) ==
LOC: JER 00:13
DX: S05.11XA Contusion of eyeball and orbital tissues, right eye, initial encounter (principal); W19.XXXA Unspecified fall, initial encounter; Z91.81 History of falling; Y93.89 Activity, other specified; Y92.128 Other place in nursing home as the place of occurrence of the external cause; Y99.8 Other external cause status; I10 Essential (primary) hypertension; K21.9 Gastro-esophageal reflux disease without esophagitis; F20.9 Schizophrenia, unspecified; F03.90 Unspecified dementia, unspecified severity, without behavioral disturbance, psychotic disturbance, mood disturbance, and anxiety; F32.9 Major depressive disorder, single episode, unspecified
CPT/HCPCS: 36415; 70450-TC; 70486-TC; 72125-TC; 80053; 82550; 84484; 85025; 93005; 93010; 99283-25